=== PATIENT | male | born 1975 | race African-American/Black ===

== ENCOUNTER 2021-05-28 13:12 | Emergency (ER) | payer BC ==
[~2021-05-28] VITALS: Ht 175.3 cm; Wt 95.0 kg
[2021-05-28 14:49] LABS: EOSINOPHILS % 2.1 % (0.0-5.0); HEMATOCRIT. 45.8 % (42.0-52.0); HEMOGLOBIN. 15.2 g/dL (14.0-18.0); LYMPHOCYTES % 34.9 % (20.0-50.0); MEAN CORPUSCULAR HEMOGLOBIN 27.3 pg (28.0-32.0); MEAN CORPUSCULAR VOLUME 82.5 fL (80.0-94.0); MEAN PLATELET VOLUME 7.7 fl (7.4-10.4); MONOCYTES % 6.8 % (2.0-8.0); NEUTROPHILS % 55.2 % (40.0-76.0); PLATELET 291 x1000/uL (130-400); RED BLOOD CELL COUNT 5.55 mill/uL (4.7-6.1); RED CELL DISTRIBUTION WIDTH 14.7 % (11.6-14.6)
[2021-05-28 14:51] LABS: CHLORIDE 107 mEq/L (98-107)
[2021-05-28] MEDS ORDERED: CLON0.252 MT (16:06)
[2021-05-28 16:20] VITALS: BP 118/87
== END 2021-05-28 16:18 | disposition home or self-care (01) ==
LOC: ER 13:12
DX: R06.02 Shortness of breath (principal); F41.9 Anxiety disorder, unspecified; I10 Essential (primary) hypertension; Z86.711 Personal history of pulmonary embolism; Z79.01 Long term (current) use of anticoagulants
CPT/HCPCS: 36415; 71045; 80053; 83880; 84484; 85025; 93005; 99285